=== PATIENT | female | born 1965 | race Caucasian/White ===

== ENCOUNTER 2020-06-09 12:08 | Emergency (ER) | payer OTHER ==
[~2020-06-09] VITALS: Ht 180.3 cm; Wt 105.2 kg
[2020-06-09 12:57] LABS: ANION GAP 10 mmol/L (7-16); BUN 13 mg/dL (7-18); CALCIUM 9.4 mg/dL (8.5-10.1); CHLORIDE 102 mmol/L (98-107); CO2 28 mmol/L (21-32); CREATININE 0.9 mg/dL (0.6-1.0); GLUCOSE 126 mg/dL (74-106); SODIUM 140 mmol/L (136-145)
[2020-06-09 12:58] LABS: POTASSIUM 4.7 mmol/L (3.5-5.1)
[2020-06-09 13:04] LABS: ABSOLUTE NEUTROPHILS 4.6 thou/uL (1.4-8.2); BASOPHILS 1.4 % (0.0-2.0); EOSINOPHILS 0.9 % (0.0-3.0); HEMATOCRIT 43.4 % (37.0-47.0); HEMOGLOBIN 14.1 gm/dL (12.0-15.0); LYMPHOCYTES 37.2 % (24.0-44.0); MCH 28.9 pg (26.0-34.0); MCHC 32.6 g/dL (28.0-37.0); MCV 88.6 fL (80.0-100.0); MONOCYTES 5.3 % (1.0-8.0); PLATELET COUNT 304 thou/uL (150-400); POLYS 55.2 % (36.0-66.0); RDW 16.2 % (10.5-14.5); WBC 8.4 thou/uL (4.0-11.0)
[2020-06-09 13:06] LABS: TROPONIN-I <0.06 ng/mL (<0.06)
[2020-06-09 14:20] VITALS: BP 137/84
--- NOTE | 2020-06-10 07:15 | EKG ---
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
== END 2020-06-09 14:20 | disposition home or self-care (01) ==
LOC: ER 12:08
PROVIDERS: Nurse Practitioner
DX: J44.1 Chronic obstructive pulmonary disease with (acute) exacerbation (principal); K21.9 Gastro-esophageal reflux disease without esophagitis; Z88.8 Allergy status to other drugs, medicaments and biological substances; Z20.828 Contact with and (suspected) exposure to other viral communicable diseases

== ENCOUNTER → 2020-06-09 | Outpatient (CLI) | payer OTHER | LOC: RAD 11:30 | PROVIDERS: ATTEND Nurse Practitioner | DX: J44.9 Chronic obstructive pulmonary disease, unspecified (principal) ==

== ENCOUNTER → 2021-04-06 | Outpatient (CLI) | payer OTHER | LOC: CAT 10:55 | PROVIDERS: ATTEND Nurse Practitioner | DX: K31.89 Other diseases of stomach and duodenum (principal); J98.11 Atelectasis; M47.815 Spondylosis without myelopathy or radiculopathy, thoracolumbar region; M51.35 Other intervertebral disc degeneration, thoracolumbar region; E27.8 Other specified disorders of adrenal gland; R10.9 Unspecified abdominal pain ==